=== PATIENT | male | born 2000 | race Caucasian/White ===

== ENCOUNTER 2021-09-13 11:56 | Emergency (ER) | payer MEDICAID ==
[~2021-09-13] VITALS: Ht 165.1 cm; Wt 62.0 kg
[2021-09-13] MEDS ORDERED: KETOROLAC 60MG/2ML VIAL IM ONE (12:30)
[2021-09-13] MEDS ORDERED: METHOCARBAMOL 750MG TABLET PO SCH (12:30)
[2021-09-13] MEDS: METHOCARBAMOL 500MG TABLET PO SCH ×2 (13:04→13:05)
[2021-09-13] MEDS: LIDOCAINE 5% PATCH TOP SCH ×2 (13:04→13:39)
[2021-09-13] MEDS ORDERED: LIDO1ADH23 TP (13:11)
[2021-09-13] MEDS ORDERED: METH-653 MT (13:11)
[2021-09-13] MEDS ORDERED: IBUP-2028 MT (13:11)
[2021-09-13 13:39] VITALS: BP 118/73
== END 2021-09-13 13:51 | disposition home or self-care (01) ==
LOC: ER 11:56
DX: M54.2 Cervicalgia (principal); V43.52XA Car driver injured in collision with other type car in traffic accident, initial encounter; Y93.89 Activity, other specified; Y92.488 Other paved roadways as the place of occurrence of the external cause
CPT/HCPCS: 96372; 99283; J1885

== ENCOUNTER 2022-02-02 21:49 | Emergency (ER) | payer MEDICAID ==
[~2022-02-02] VITALS: Ht 167.6 cm; Wt 64.0 kg
[~2022-02-02 21:49] MED LIST: IBUP-2028 MT; LIDO1ADH23 TP; METH-653 MT
[2022-02-02 22:10] VITALS: BP 131/90
== END 2022-02-03 01:04 | disposition home or self-care (01) ==
LOC: ER 21:49
DX: S63.591A Other specified sprain of right wrist, initial encounter (principal); W22.01XA Walked into wall, initial encounter; Y93.89 Activity, other specified; Y92.9 Unspecified place or not applicable
CPT/HCPCS: 29125; 73100; 73120; 99284